=== PATIENT | female | born 1950 | race Caucasian/White ===

== ENCOUNTER → 2016-08-28 | Outpatient (CLI) | payer OTHER ==
--- NOTE | ~2016-08-28 | CT55 ---
[facility] A Service of [facility] & [facility] / [facility] RADIOLOGY TEXT RESULTS PATIENT: ANKUSH SAEZ LOCATION: [facility] : 54 UNIT #: [id number] AGE: [address]: Mike Foote APRN SEX: F ORDER DR: [id number] [facility] [address] [place], [place] [address] [id number] MR#: [id number] #: [id number] NAME: ANKUSH SAEZ : 1950 SEX: F STUDY DATE/TIME: 08/28/2016 16:46 UNIT: [facility] ROOM: STUDY DESCRIPTION: CT Chest W Con Attending Physician: Mike Foote Referring Physician: Mike Foote Ordering Physician: Mike Foote Primary Care Physician: Mike Foote MEDICAL IMAGING REPORT This report is preliminary unless electronic signature is present EXAM CT of the chest with contrast. INDICATIONS Mass demonstrated on chest x-ray. Fatigue for [address] of the chest was performed following the administration of IV contrast. Coronal and sagittal reformatted images were obtained. This CT exam was performed with one or more of the following radiation dose reduction techniques: automatic exposure control, adjustment of mA and/or kV according to patient size, and iterative reconstruction. COMPARISON There are no comparison studies available. FINDINGS There are emphysematous changes of the lungs. There is a large masslike density within the right middle lobe posteriorly measuring about 8.0 x 5.4 cm. There is a micronodule in the right upper lobe on image 22. Micronodule in the right posterior right upper lobe on image 19. There are scattered tiny micronodules in the left lung. There is an 8 mm nodule in the base of the left lower lobe on image 43. There are some scattered micronodules in the right lower lobe. There is no mediastinal lymphadenopathy. There is no left hilar lymphadenopathy or axillary lymphadenopathy. There is no pleural effusion. Limited imaging of the upper abdomen is unremarkable. Bone windows demonstrate degenerative changes of the thoracic spine. IMPRESSION 1. There is a large mass-like density within the right middle lobe posteriorly extending to the right hilum. Overall it measures about 8.0 x 5.4 cm. [facility] A Service of [facility] & [facility] / [facility] RADIOLOGY TEXT RESULTS PATIENT: ANKUSH SAEZ LOCATION: [facility] : 54 UNIT #: [id number] AGE: [address]: Mike Foote APRN SEX: F ORDER DR: 2. While this may prove to represent a dense pneumonia, this is very concerning for a large mass which is lung cancer. At this point, I would recommend a pulmonary consultation as well as further imaging evaluation with a PET/CT. 3. There are probably some enlarged right hilar lymph nodes that are contiguous with the mass. There is no lymphadenopathy within the mediastinum or left hilum. 4. There are scattered tiny subcentimeter nodules elsewhere the lungs which are nonspecific and should be followed. Dictated by... Willem Shepard M.D. THIS IS AN ELECTRONICALLY VERIFIED REPORT Willem Shepard M.D. at 08/30/2016 3:46 PM SHAWN/ricci TD: 08/29/2016 16:17 JOB #: [id number] MEDICAL IMAGING REPORT Page 1 of 1 COPY
[2016-08-31 11:36] LABS: POC - CREATININE 0.73 mg/dL (0.44-1.03); POC - GFR >60.0 mL/min (>60)
== END | disposition home or self-care (01) ==
LOC: CCAT 09:49
PROVIDERS: Nurse Practitioner Family
DX: R22.2 Localized swelling, mass and lump, trunk (principal); J98.4 Other disorders of lung
CPT/HCPCS: 71260; 82565; Q9967